=== PATIENT | male | born 1995 | race Caucasian/White ===

== ENCOUNTER 2024-04-01 12:39 | Emergency (ER) | payer OTHER, SELFPAY ==
[2024-04-01] MEDS ORDERED: Lidocaine 1% (PF) 30 ML VIAL ONE (13:07)
== END 2024-04-01 14:06 | disposition home or self-care (01) ==
LOC: ERS 12:39
DX: L03.011 Cellulitis of right finger (principal); F17.210 Nicotine dependence, cigarettes, uncomplicated
CPT/HCPCS: 10060; 87070; 87205; J2001